=== PATIENT | male | born 1985 | race Caucasian/White ===

== ENCOUNTER 2022-06-28 11:23 | Outpatient (CLI) | payer MEDICARE, MEDICAID, SELFPAY ==
--- NOTE | 2022-06-28 11:36 | XRR_ITS ---
PROCEDURE INFORMATION: Exam: XR Left Shoulder Exam date and time: 06/28/2022 11:38 AM Age: 37 years old Clinical indication: Left; Patient HX: History--chronic bilat shoulder pain; Additional info: Chronic pain of both shoulders TECHNIQUE: Imaging protocol: Radiologic exam of the Left shoulder. Views: 2 or more views. COMPARISON: No relevant prior studies available. FINDINGS: Bones/joints: There is widening of the left shoulder joint space. The overlap of the humeral head and glenoid is decreased. The potential for a partial dislocation should be ruled out. If the patient's range of motion is within normal range that would rule out the dislocation. Soft tissues: Normal. XR/XR shoulder LT min 2V* [id number] IMPRESSION: Rule out partial dislocation as noted above.
--- NOTE | 2022-06-28 11:43 | XRR_ITS ---
PROCEDURE INFORMATION: Exam: XR Right Shoulder Exam date and time: 06/28/2022 11:44 AM Age: 37 years old Clinical indication: Right; Patient HX: History--chronic bilat shoulder pain; Additional info: Chronic pain of both shoulders TECHNIQUE: Imaging protocol: Radiologic exam of the Right shoulder. Views: 2 or more views. COMPARISON: No relevant prior studies available. FINDINGS: Bones/joints: The shoulder joint is widened. There is small overlap of the glenoid and humeral head. The potential for a partial dislocation should be ruled out. if the patient's range of motion for the shoulder is normal that would rule out the finding. Soft tissues: Normal. XR/XR shoulder RT min 2V* [id number] IMPRESSION: Rule out partial dislocation of the right shoulder as noted above Otherwise negative examination
== END 2022-06-28 11:24 | disposition home or self-care (01) ==
LOC: RAD 11:29
PROVIDERS: PCP Nurse Practitioner Family; Visit Provider Family Medicine
DX: M25.512 Pain in left shoulder (principal); M25.511 Pain in right shoulder
CPT/HCPCS: 73030

== ENCOUNTER → 2022-12-08 10:06 | Outpatient (BNVA) | payer MEDICARE, MEDICAID, SELFPAY | PROVIDERS: PCP Nurse Practitioner Family; Referring Provider Family Medicine; Visit Provider Orthopaedic Surgery | DX: M25.511 Pain in right shoulder (principal); M25.512 Pain in left shoulder | CPT/HCPCS: 73030; 99203 ==

== ENCOUNTER 2022-12-23 09:26 | Outpatient (RCR) | payer MEDICARE, MEDICAID, SELFPAY | END 2023-01-05 23:59 | disposition home or self-care (01) | LOC: SPT 09:26 | PROVIDERS: PCP Family Medicine; Visit Provider Orthopaedic Surgery | DX: M25.512 Pain in left shoulder (principal); M25.511 Pain in right shoulder | CPT/HCPCS: 97110; 97161; 97530 ==

== ENCOUNTER → 2023-01-05 09:11 | Outpatient (BNVA) | payer MEDICARE, MEDICAID, SELFPAY | PROVIDERS: PCP Family Medicine; Visit Provider Orthopaedic Surgery | DX: M25.511 Pain in right shoulder (principal); M25.512 Pain in left shoulder | CPT/HCPCS: 99213 ==

== ENCOUNTER 2023-01-26 10:41 | Outpatient (CLI) | payer MEDICARE, MEDICAID, SELFPAY ==
--- NOTE | 2023-01-26 11:00 | MR_ITS ---
WS: [id number] MRI LEFT SHOULDER HISTORY: pain COMPARISON: Radiographs 12/08/2022 TECHNIQUE: Multiplanar sequences of the shoulder joint are submitted. Moderate AC joint narrowing. There is mild deformity of the AC joint with the acromion being inferior ly displaced with respect to the clavicular head. Mild encroachment upon the myotendinous insertion o f the supraspinatus. No subacromial impingement. No subacromial or subdeltoid bursal fluid. Normal po sition of the biceps tendon. No os acromion. Increased signal within the distal supraspinatus tendon. No definite tear is identified. The submitte d coronal T2 fat saturated images is suboptimal. The patient was brought back for additional imaging but the additional imaging is not T2 weighted. Favor tendinopathy. No muscle atrophy. No joint effusi on. Additional narrowing of the coracohumeral interval. Coracoid process appears enlarged encroaching upon the subscapularis tendon. Small subchondral cystic changes in the humeral head. Mild increased signal through the base of the s uperior labrum. MR/MR shoulder LT wo con* [id number] IMPRESSION: 1. Moderate AC joint arthritis. Acromion with deformity and encroachment upon the supraspinatus myotendinous region. 2. Moderate tendinopathy in the distal supraspinatus. Supraspinatus tendon ev aluation is limited due to the limited quality coronal T2 FS sequence. Patient was brought back for repeat imaging but this sequence is still suboptimal. Usin g all the sequences favor tendinopathy and not tear in the supraspinatus. 3. Narrowing of the coracohumeral interval. Coracoid process is enlarged and c ontacts the subscapularis tendon.
== END 2023-01-26 10:42 | disposition home or self-care (01) ==
PROVIDERS: PCP Family Medicine; Visit Provider Orthopaedic Surgery
DX: M19.012 Primary osteoarthritis, left shoulder (principal); M25.511 Pain in right shoulder; M25.512 Pain in left shoulder
CPT/HCPCS: 73221

== ENCOUNTER 2023-01-27 16:05 | Outpatient (RCR) | payer MEDICARE, MEDICAID, SELFPAY | END 2023-02-04 23:59 | disposition home or self-care (01) | LOC: SPT 16:05 | PROVIDERS: PCP Family Medicine; Visit Provider Orthopaedic Surgery | DX: M25.511 Pain in right shoulder (principal); M25.512 Pain in left shoulder | CPT/HCPCS: 97110; 97530 ==

== ENCOUNTER 2023-02-05 06:00 | Outpatient (RCR) | payer MEDICARE, MEDICAID, SELFPAY | END 2023-03-01 23:59 | disposition home or self-care (01) | LOC: SPT 06:00 | PROVIDERS: PCP Family Medicine; Visit Provider Orthopaedic Surgery | DX: M25.511 Pain in right shoulder (principal); M25.512 Pain in left shoulder | CPT/HCPCS: 97110; 97530 ==

== ENCOUNTER → 2023-03-25 09:34 | Outpatient (BNVA) | payer MEDICARE, MEDICAID, SELFPAY | PROVIDERS: PCP Family Medicine; Visit Provider Student in an Organized Health Care Education/Training Program | DX: M75.22 Bicipital tendinitis, left shoulder | CPT/HCPCS: 20610; 99214 ==